=== PATIENT | male | born 1935 | race Caucasian/White ===

== ENCOUNTER 2020-04-01 17:04 | Inpatient (IN) | payer MEDICARE ==
[2020-04-02 18:18] VITALS: BP 119/93
--- NOTE | 2020-04-02 18:18 | History and Physical ---
History of Present Illness - HPI Chief Complaint: Psychosis HPI: * Transferred from [facility] * ANA on 5150 (threatening to hurt/kill ) Past Medical History Cardiovascular: Report: CHF Pulmonary: Report: No Pertinent Hx ENVIRONMENTAL LAWYER: Report: No Pertinent Hx GI: Report: No Pertinent Hx Psych: Report: Psychosis Musculoskeletal: Report: No Pain Rheumatologic: Report: No pertinent Hx Infectious Disease: Report: No Pertinent Hx Renal/: Report: No Pertinent Hx Endocrine: Report: No Pertinent Hx Dermatology: Report: No Pertinent Hx Other History: Bone Marrow Cancer - Past Surgical History Past Surgical History: No pertinent Hx Social History Smoke: No Alcohol: None Drugs: None Lives: With Family Review of Systems - Review of Systems Constitutional: Report: No Significant Eyes: Report: No Significant ENT: Report: No Significant Respiratory: Report: No Significant Cardiovascular: Report: Edema Gastrointestinal: Report: No Significant Genitourinary: Report: No Significant Musculoskeletal: Report: No Significant Skin: Report: Rash Neurological: Report: Confusion Physical Exam - Physical Exam HEENT: Report: Ears Nose Throat within normal limits, Pharnyx within normal limits Neck: Report: Within normal limits Cardiovascular Systems: Report: Regular, Rate and Rhythm, no murmurs noted Respiratory: Report: Clear to Auscultation of lung porras, Breath Sounds are within normal limits Abdomen: Report: Non-tender to palpation, Other (Distended) Back: Report: Inspection of back is within normal limits. Extremities: Report: Other (Edema present) Skin: Report: Skin Rash noted Neuro/Psych: Report: CN II-XII intact, No motor deficit, No sensory deficit, No new focal deficits - Assessment Assessment: * Acute Psychosis * CHF * Bone Marrow Cancer - Plan Plan: * Admitted to Geropsych Unit * Psychiatry Consult * Obtain labs * Obtain BLE ultrasound Cranial Nerve Assessment - CRANIAL NERVES alcohol swab:: No (Unable to assess) Distinguishes movements in peripheral field.:: No (Unable to assess) up, down, sideways:: No (Unable to assess) on forehead, cheeks and chin, chews symmetrically:: No (Unable to assess) FACIAL VII: upper: Frowns Symmetrically:: No (Unable to assess) FACIAL VII: Lower: Smiles Symmetrically:: No (Unable to assess) both ears:: No (Unable to assess) GLOSS-PHARYNGEAL IX: Has gag reflex:: No (Unable to assess) VAGUS X: Can make guttural sounds:: No (Unable to assess) ACCESSORY XI: Shrugs shoulders symmetrically:: No (Unable to assess) tremors or fasciculation's:: No (Unable to assess) - MOTOR spasticity, cogwheel, atrophy, tremor, asterixis, other: No (Unable to assess) - COORDINATION Finger to nose, heel to xiao, VIV, gait, Romberg: No (Unable to assess) - SENSORY signs, Brudzinski, Kernig, neck rigidity:: No (Unable to assess) - REFLEXES Brachioradials Right:: No (Unable to assess) Brachioradials Left:: No (Unable to assess) Biceps Right:: No (Unable to assess) Biceps Left:: No (Unable to assess) Triceps Right:: No (Unable to assess) Triceps Left:: No (Unable to assess) Knee Right:: No (Unable to assess) Knee Left:: No (Unable to assess) Ankle Right:: No (Unable to assess) Ankle Left:: No (Unable to assess) Babinski Right:: No (Unable to assess) Babinski Left:: No (Unable to assess)
[2020-04-02] MEDS ORDERED: Magnesium Hydroxide (MOM) 30 mL UDC PO PRN ×2 (18:20→18:21)
[2020-04-02] MEDS ORDERED: Acetaminophen 500 MG TAB PO PRN (18:20)
[2020-04-02] MEDS ORDERED: Maalox 30 mL Cup PO PRN ×2 (18:20→18:21)
[2020-04-02] MEDS ORDERED: Fleet Enema 135 mL RC PRN (18:21)
[2020-04-02] MEDS ORDERED: GLUCAGON HCl 1 MG KIT IM PRN (18:31)
[2020-04-02] MEDS: INSULIN LISPRO SLIDING SCALE 100 UNITS/ML UNIT SUBQ SCH (21:28)
[2020-04-03] MEDS: INSULIN LISPRO SLIDING SCALE 100 UNITS/ML UNIT SUBQ SCH ×3 (06:39→16:51)
--- NOTE | 2020-04-03 08:54 | Psychiatric Evaluation ---
DATE OF SERVICE: AGE: 85. SEX: Male. PHYSICIAN: Dr. Crespo. CHIEF COMPLAINT: 5150 hold for dangers to others. HISTORY OF PRESENT ILLNESS: The patient is an 87-year-old male who was placed on 5150 hold by the Electrical Linesworker for dangers to others. Apparently, the Engraver arrived to the location where the patient lives after a phone call from the family and the Engraver spoke with the patient and the patient said that he did make threats to hurt his and also inquired about his firearms, but was not able to say why he wants the firearms. Chart reviewed and the patient interviewed and discussed the patient's condition with the staff and reviewed records and labs. The patient seems to be currently confused and is in irritable mood. The patient was not able to give me any coherent conversation and he was rambling most of my interview. He also is restless and he seems to be suspicious and paranoid. The patient also was actively responding to stimuli. He admitted that he wanted to kill his . Also did not tell me why he was looking for his weapons. PAST PSYCHIATRIC HISTORY: The patient denies. PAST MEDICAL HISTORY: The patient has a history of bone marrow cancer and was receiving chemotherapy. Treatment was stopped because of side effects of chemotherapy and the patient could not tolerate it. The patient also was complaining of severe pain and agitation and hallucinations during chemotherapy. SOCIAL HISTORY: The patient lives with his . History of alcoholism, but he has not been drinking lately. The patient is retired. ALLERGIES: CODEINE. MENTAL STATUS EXAMINATION: The patient appears his stated age. Obese. Flat affect. Depressed mood. Rambling and unable to carry on coherent conversation at this time and most of my information obtained from reviewing records and of my trial to interview the patient and also from staff reports. The patient is mumbling and seems to be talking to self. He denies any hallucinations or delusions, but seems to be paranoid and suspicious. Denies suicide ideations. Admits to homicidal ideations. The patient is alert and oriented to time, place, person, and situation. Impaired immediate and recent memory, but intact remote memory. Fair insight, but poor judgment. Seems to be of average intelligence. Seems to be on his verbal ability. ASSESSMENT: PRIMARY DIAGNOSIS: Depressive mood disorder, severe, with psychotic features. SECONDARY DIAGNOSIS: History of alcoholism. TREATMENT PLAN: We will continue monitoring his behavior and his condition closely. We will start the patient on Abilify 5 mg every day and will adjust the dose. Also, we will work on his ineffective coping and his cancer. ESTIMATED LENGTH OF STAY: 5-7 days. PATIENT'S STRENGTHS AND WEAKNESSES: The patient seems to have supportive . Weaknesses are his ineffective coping and his anger and irritability. AFTER DISCHARGE PLAN: The patient most probably will return to his unless placement will be an issue. Outpatient treatment and followup will continue as an outpatient. CRITERIA FOR DISCHARGE: The patient will not be homicidal or suicidal and will stabilize psychotropic medications and will establish outpatient treatment plans. JOB# [id number]
[2020-04-03] MEDS ORDERED: Multivitamin Tab PO SCH (09:00)
[2020-04-03 13:44] LABS: GLUCOSE,URINE NEGATIVE (NEGATIVE); URINE BILIRUBIN NEGATIVE (NEGATIVE); URINE CLARITY BLOODY (CLEAR); URINE COLOR RED (YELLOW)
[2020-04-03 13:45] LABS: LEUKOCYTE ESTERASE ,URINE 2+ (NEGATIVE); PROTEIN URINE 3+ (NEGATIVE); URINE KETONE TRACE (NEGATIVE); URINE NITRATE NEGATIVE (NEGATIVE)
[2020-04-03 13:46] LABS: BLOOD, URINE 3+ (NEGATIVE)
[2020-04-03] MEDS ORDERED: ONDANSETRON 8 MG PO PRN (18:04)
[2020-04-03 23:26] LABS: BILIRUBIN,TOTAL 1.7 mg/dL (0.0-1.0); CREATININE - SERUM 2.51 mg/dL (0.70-1.30); TOTAL PROTEIN,SERUM 7.1 g/dL (6.4-8.3)
[2020-04-03 23:30] LABS: CHOLESTEROL 103 mg/dL (<200); LDL CHOLESTEROL 72 mg/dL (0-129); TRIGLYCERIDES 78 mg/dL (30-150)
[2020-04-04 06:10] LABS: A1C 5.5 % (4.8-5.6)
[2020-04-04] MEDS ORDERED: Levothyroxine 0.112 Mg Tab PO SCH (07:30)
[2020-04-04] MEDS ORDERED: Pantoprazole 40 mg EC Tab PO SCH (09:00)
[2020-04-04] MEDS ORDERED: Potassium Chloride 10 mEq ER Tab PO SCH (09:00)
[2020-04-04] MEDS ORDERED: Diltiazem CD 180 mg C24 PO SCH (09:00)
[2020-04-04] MEDS ORDERED: Insulin Glargine 100 units/ml 10ml Vial SUBQ SCH (09:00)
[2020-04-04 12:30] LABS: HEMATOCRIT 27.2 % (36-54); HEMOGLOBIN 7.8 g/dL (14.0-18.0); MEAN CORPUSCULAR HEMOGLOBIN 31 pg (27-31); MEAN CORPUSCULAR HGB CONC 29 % (32-36); MEAN CORPUSCULAR VOLUME 107 fL (79.0-98.0); RED BLOOD COUNT 2.54 MIL/uL (4.2-6.2)
[2020-04-04 12:31] LABS: % NEUTROPHILS 82.4 % (40-70); BASOPHILS % (AUTO) 0.4 % (0.0-2.0); LYMPHOCYTES # (AUTO) 0.8 K/uL (1.0-5.5); MONOCYTES # (AUTO) 0.1 K/uL (0.0-1.0); MONOCYTES % (AUTO) 1.2 % (1.7-9.3); NEUTROPHILS # (AUTO) 4.1 K/uL (1.8-7.7); PLATELET COUNT 8 K/uL (130-430)
--- NOTE | 2020-04-04 13:37 | Diagnostic Imaging Report ---
Portable chest x-ray Time: 1307 History: Congestive heart Allowing for portable technique the heart size is enlarged, congestive heart failure changes. No focal pulmonary parenchymal processes. No hilar or mediastinal abnormalities. Impression: Cardiomegaly, congestion.
--- NOTE | 2020-04-04 18:35 | Progress Notes ---
DATE: SUBJECTIVE: Chart was reviewed and the patient interviewed. Also discussed the patient's condition with the staff and reviewed records and labs. The patient continued to be confused and he is still in irritable and angry mood. The patient also is easily agitated and irritable. He also has still thoughts of homicide and wants to get his gun to shoot his . He also is still interacting minimally with others. The patient also is still complaining of pain. During my interview, the patient is demanding and he is asking for the nurses to come "to take my hand." The patient also is still verbally abusive to staff. ASSESSMENT: The patient is still agitated and psychotic and still can be dangerous to others. TREATMENT PLAN: We will monitor the patient's condition closely. Also, we will place the patient on 5250 hold for danger to others and grave disability. Also, continue Abilify and continue adjusting psychotropic medications. JOB# [id number]
== END 2020-04-04 13:05 | disposition short-term general hospital (02) | DRG 885 ==
LOC: GERO 04-02 15:59 → UNDODISIN 04-03 19:36
PROVIDERS: ADMIT Psychiatry & Neurology Psychiatry; ATTEND Psychiatry & Neurology Psychiatry
DX: F32.3 Major depressive disorder, single episode, severe with psychotic features (principal); I50.9 Heart failure, unspecified; Z85.830 Personal history of malignant neoplasm of bone; E66.9 Obesity, unspecified; Z88.5 Allergy status to narcotic agent; Z68.33 Body mass index [BMI] 33.0-33.9, adult
CPT/HCPCS: 36415-UA; 71045-TC; 80053-TC; 80061-TC; 81003-TC; 82948-90; 83036-90; 83880-TC; 85025-TC; J1815; Z7610